=== PATIENT | male | born 1960 | race Caucasian/White ===

== ENCOUNTER 2017-08-08 11:30 | Emergency (ER) | payer BC ==
[2017-08-08] MEDS ORDERED: Aspirin Low Dose CHEW TAB* 81 MG PO ONE (12:02)
[2017-08-08 12:25] LABS: Hematocrit 40 % (42-52); Hemoglobin 14.2 g/dl (14.0-18.0); Mean Corpuscular HGB Conc 36 g/dl (31-36); Mean Corpuscular Hemoglobin 29 pg (27-31); Mean Corpuscular Volume 83 fL (80-94); Mean Platelet Volume 8 um3 (7.4-10.4); Red Blood Count 4.82 10^6/ul (4.0-5.4); Red Cell Distribution Width 14 % (10.5-15); White Blood Count 6.6 10^3/ul (3.5-10.8)
[2017-08-08 12:39] LABS: Albumin 4.5 g/dL (3.2-5.2); BUN/Creatinine Ratio 19.1 (8-20); Calcium 9.3 mg/dL (8.6-10.3); EGFR African American 154.6 (>60); EGFR Non-African American 120.2 (>60); Globulin 2.7 g/dL (2-4); Potassium 4.1 mmol/L (3.5-5.0); Total Bilirubin 0.6 mg/dL (0.2-1.0); Total Protein 7.2 g/dL (6.4-8.9)
--- NOTE | 2017-08-08 13:28 | RAD ---
INDICATION: 5 days of mid chest pain COMPARISON: Most recent comparison chest x-ray October 02, 2015 TECHNIQUE: Single AP portable view of the chest was obtained. FINDINGS: Image quality is compromised due to the relative inferiority of a portable chest x-ray. The heart and mediastinum exhibit normal size and contour. The lungs are grossly clear. There is no evidence of a large pleural effusion. Visualized bones are normal for the patient's age. IMPRESSION: No radiographic evidence for acute cardiopulmonary abnormality on this portable chest x-ray.
[2017-08-08] MEDS ORDERED: Ketorolac INJ* 30 MG/ML 1 ML VIAL IV ONE (14:11)
[2017-08-08 14:41] VITALS: BP 117/87
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
== END 2017-08-08 14:42 | disposition home or self-care (01) ==
LOC: ED 11:30
DX: R07.89 Other chest pain (principal); R05 Cough; R11.2 Nausea with vomiting, unspecified; F17.210 Nicotine dependence, cigarettes, uncomplicated
CPT/HCPCS: 36415; 71010; 80053; 82550; 82553; 83605; 83735; 83874; 83880; 84484; 85025; 85610; 85730; 93005; 96374; 99282; J1885

== ENCOUNTER 2018-08-19 15:57 | Emergency (ER) | payer BC ==
[2018-08-19 18:28] LABS: ABS Basophils 0.1 10^3/ul (0-0.2); ABS Eosinophils 0.1 10^3/ul (0-0.6); ABS Lymphocytes 1.7 10^3/ul (1.0-4.8); ABS Monocytes 0.8 10^3/ul (0-0.8); ABS Neutrophils 5.7 10^3/ul (1.5-7.7); ABS Nucleated RBC 0 10^3/ul; Eosinophil % 1.2 % (0-6); Hematocrit 39 % (42-52); Lymphocyte % 20.2 % (25-47); Mean Corpuscular HGB Conc 36 g/dl (31-36); Mean Corpuscular Hemoglobin 30 pg (27-31); Mean Corpuscular Volume 83 fL (80-94); Nucleated Red Blood Cells % 0.1; Platelet Count 228 10^3/ul (150-450); Red Blood Count 4.72 10^6/ul (4.00-5.40); Red Cell Distribution Width 14 % (10.5-15); White Blood Count 8.4 10^3/ul (3.5-10.8)
[2018-08-19 19:39] VITALS: BP 127/69
== END 2018-08-19 19:39 | disposition left against medical advice (07) ==
LOC: ED 15:57
DX: R10.9 Unspecified abdominal pain (principal); Z53.21 Procedure and treatment not carried out due to patient leaving prior to being seen by health care provider
CPT/HCPCS: 36415; 80053; 83605; 83690; 85025; 86140

== ENCOUNTER 2018-08-19 20:02 | Emergency (ER) | payer BC ==
--- NOTE | 2018-08-19 20:32 | UC ---
Abdominal Pain Male HPI - HPI Summary HPI Summary: A 57 y/o male presents to [facility] c/o severe abdominal pain reaching 10/10 in severity. According to the patient, he has been experiencing constant abdominal pain for the past 3 days, however, today it has become worse. The patient noted that he was at the [facility] ED prior to coming to [facility] UC approximately around 1500. He further noted that blood work was done at the [facility] ED but he did not get results. . He stated that initially the pain was tolerable, however, today it is causing pain with walking. The patient also has back pain, but he stated that the back pain is chronic, with nothing new concerning. He denies any nausea , vomiting or hematuria.No sense of urinary retention. Pt has been passing flatus, no BM x 5 days, Pt takes senokot. Patient has not had a BM for the past week, but he does not feel constipated or have the need to use the restroom. He put icy/hot patches on his abdomen, but nothing has helped. Patient has recently gained 40 lbs because he quit smoking in January. Patient takes medications which include 60 of Morphine 3x per day (took 2 today so far) . PCP is Randa Jcakman. No allergies to medications. Pt medications reviewed this visit. - History of Current Complaint Chief Complaint: UCAbdominalPain Stated Complaint: ABDOMINAL PAIN Time Seen by Provider: 08/19/18 20:17 Hx Obtained From: Patient Onset/Duration: Sudden Onset, Lasting Days, Still Present Timing: Constant Severity Initially: Severe Severity Currently: Severe Pain Intensity: 10 Pain Scale Used: 0-10 Numeric Location: Diffuse Radiates: No Aggravating Factor(s): Nothing Alleviating Factor(s): Nothing Associated Signs And Symptoms: Positive: Negative - Allergies/Home Medications Allergies/Adverse Reactions: Allergies Allergy/AdvReac Type Severity Reaction Status Date / Time Penicillins Allergy Difficulty Verified 08/19/18 20:11 Breathing phenytoin [From Dilantin] Allergy Difficulty Verified 08/19/18 20:11 Breathing PMH/Surg Hx/FS Hx/Imm Hx Previously Healthy: Yes Respiratory History: Asthma - Surgical History Surgical History: Yes Surgery Procedure, Year, and Place: LSP SURGERY X3 MOST RECENT 2001, HERNIA,. LEFT SHOULDER REPAIR - Family History Known Family History: Positive: Cardiac Disease, Other - CVA - Social History Lives: With Family Alcohol Use: None Substance Use Type: Prescribed Substance Use Comment - Amount & Last Used: oxy Smoking Status (MU): Former Smoker Type: Cigarettes Amount Used/How Often: 1 ppd Length of Time of Smoking/Using Tobacco: 47 years Household Exposure Type: Cigarettes Review of Systems Gastrointestinal: Abdominal Pain - LLQ Genitourinary: Negative Is Patient Immunocompromised?: No All Other Systems Reviewed And Are Negative: Yes Physical Exam - Summary Physical Exam Summary: Vital Signs Reviewed: Yes A+Ox3, no distress Eyes: Conjunctiva Clear, JAD. EOM intact and full ENT: Hearing grossly normal TM x 2 clear, mmoist, uvula midline, no exudate, no erythema Neck: Positive: Supple Respiratory: Positive: No respiratory distress, No accessory muscle use + CTA throughout no w/r Cardiovascular: RRR nl s1, s2 no m/r CBT <2 sec abd soft +/decreased BS + TTP LLQ/suprapubic area discomfort with direct palp. Pt supporting left side abd. No CVA no guarding, no rebound. Musculoskeletal Exam: CALL x 4 without difficulty Strength Intact, ROM Intact pt able to climb on and off stretcher without assistance Neurological: Positive: Alert, + sensation throughout Psychological: Positive: Normal Response To Family Skin: Positive: no rash, no ecchymosis Triage Information Reviewed: Yes Vital Signs: Initial Vital Signs Temp 99.0 F 08/19/18 20:08 Pulse 95 08/19/18 20:08 Resp 18 08/19/18 20:08 BP 124/80 08/19/18 20:08 Pulse Ox 100 08/19/18 20:08 Vital Signs Reviewed: Yes Diagnostics - Radiology No standard instances Xray Interpretation: Positive (See Comments) - Cloud Infrastructure Architect: ([id number]) Yarn Man: (JAMES) Report Date: 08/19/2018 20:44:00 Report Status: Final Begin of Report Content = EXAM: CT Abdomen and Pelvis Without Intravenous Contrast CLINICAL HISTORY: 57 years old, male; Pain; Abdominal pain; Other: Left lower pelvic pain; Prior surgery; Surgery date: 6+ months; Surgery type: Cholecystectomy; Patient HX: Lower pelvic pain and llq pain x 3 days, denies any other symptoms; Additional info: Abd pain, llq pain TECHNIQUE: Axial computed tomography images of the abdomen and pelvis without intravenous contrast. All CT scans at this facility use at least one of these dose optimization techniques: automated exposure control; mA and/or kV adjustment per patient size (includes targeted exams where dose is matched to clinical indication); or iterative reconstruction. Coronal and sagittal reformatted images were created and reviewed. COMPARISON: A /P W CT ABD/PEL W 12/16/2015 7:37 PM FINDINGS: Lung bases: Unremarkable. No mass. No consolidation. ABDOMEN: Liver: Unremarkable. Gallbladder and bile ducts : Unremarkable. No calcified stones. No ductal dilation. Pancreas: Unremarkable. No ductal dilation. Spleen: Unremarkable. No splenomegaly. Adrenals: Unremarkable. No mass. Kidneys and ureters: 14 mm simple left renal cyst. No followup necessary. No obstructing stones. No hydronephrosis. Stomach and bowel: Unremarkable. No obstruction. No mucosal thickening. PELVIS: Appendix : No findings to suggest acute appendicitis. Bladder: There is moderate wall thickening of the anterior wall of the urinary bladder with adjacent infiltrative changes in the fat. This could be cystitis or tumor. No stones. Reproductive: Unremarkable as visualized. ABDOMEN and PELVIS: Intraperitoneal space: Unremarkable. No free air. No significant fluid collection. Bones/joints : Posterior fusion L4-L5. Moderate skeletal degenerative change. No acute fracture. No dislocation. Soft tissues: Unremarkable. Vasculature: Limited atherosclerosis. No abdominal aortic aneurysm. Lymph nodes: Unremarkable. No enlarged lymph nodes. IMPRESSION: There is moderate wall thickening of the anterior wall of the urinary bladder with adjacent infiltrative changes in the fat. This could be cystitis or tumor Radiology Interpretation Completed By: Radiologist Re-Evaluation - Re-Evaluation First Eval Comment: repeat temp wnl. reviewed labs, urine and CT with pt. spoke with Dr. Campbell Jackman. potential for diverticulitis although normal wbc, no shift and normal lactic. will start cipro/flagyl tonight. will give dse for morning. Dr. Jackman office will call tomorrow for an appointment. Pt to take Morphine. APAP okay. return to ED if pain uncontrolled, vomiting, fever. Pt and comfortable and in agreement with plan Abd Pain Male Course/Dx - Course Course Of Treatment: Patient presents to urgent care with progressive abdominal pain over the last 2-3 days. Patient states pain is mostly in his left lower quadrant. Patient without any other complaints. No fevers no chills no nausea no vomiting patient's passing flatus. No chest pain no shortness of breath. Patient's chronic back pain which has not changed. Patient states he takes his baseline morphine which is not helping his belly pain. Patient has not had a bowel movement in 5 days. Patient states he does not feel constipated this is not abnormal for him. Patient went to the emergency department where he was in the waiting room for several hours. Patient came here for further evaluation. Patient did have lab work done in the emergency department. Review of his lab work was a CBC chemistry and CRP. Patient's CBC and chemistry were not concerning. Patient was noted to have an elevated CRP. In the past patient has had an elevated CRP but it was significantly elevated today. On exam, patient with tenderness in his left lower quadrant. Patient vital signs reviewed and stable. Will check a urine as well as a noncontrast CT. Pending these results will either A) recommend patient to the emergency Department B), treatment of any condition is identified as possible at urgent care C) discuss patient with PCP. Patient and his are comfortable and in agreement with plan. - Differential Dx/Clinical Impression Provider Diagnoses: abdominal pain Discharge - Sign-Out/Discharge Documenting (check all that apply): Patient Departure All imaging exams completed and their final reports reviewed: Yes - Discharge Plan Condition: Stable Disposition: HOME Prescriptions: Ciprofloxacin HCl [Cipro] 500 mg PO BID #18 tablet metroNIDAZOLE [Flagyl 500 MG TAB] 500 mg PO TID #28 tab Patient Education Materials: Abdominal Pain (ED) Referrals: Randa Jackman MD [Primary Care Provider] - (tomorrow - Dr. Jackman's office will contact you to schedule an appointment tomorrow ) Additional Instructions: As discussed, the CAT scan showed some inflammation in the area of your bladder. This could be related to your bladder or could be related to infection in your large intesting (colon) Your urine is being sent for additional testing. You have been started on antibiotics which will treat both of these conditions. It is recommended you take both antibiotics (Cipro 500mg and Flagyl 500mg) in the morning. Take your morphine 3 times a day as previously prescribed. It is okay to take Tylenol in addition to morphine. You may take 2 tablets of Tylenol every 6-8 hours. It is recommended you sleep with a pillow underneath her knees as bending your knees will help relieve some of the discomfort of her abdomen. It is recommended that you use a heating pad to help with her discomfort. Do not put the pad directly on your skin to avoid burn. Dr. Jackman is aware the your evaluated tonight and will see you tomorrow. Her office will contact you in the morning with an appointment. If, overnight, your pain becomes uncontrolled, you develop a fever, you develop vomiting, or you have any other concerns, it is recommended to go directly to emergency department for further evaluation. Continue to take your Senokot daily to help with regular bowel movements. Description since has been sent to your pharmacy for continuation. Is recommended you wait to fill his prescriptions until you're evaluated by Dr. Jackman she may change her medications. As discussed at urgent care today, your bladder was noted to be thick on CT scan. If you symptoms persist, Dr. Jackman may refer you to a urologist (bladder specialist) - Billing Disposition and Condition Condition: STABLE Disposition: Home - Attestation Statements Document Initiated by Octaviano: Yes Documenting Scribe: Simeon Jordan Provider For Whom Sherieibe is Documenting (Include Credential): Anastasiya Gordon MD Scribe Attestation: I, Simeon Jordan, scribed for Anastasiya Gordon MD on 08/19/18 at 2244. Scribe Documentation Reviewed: Yes Provider Attestation: The documentation as recorded by the Simeon sun accurately reflects the service I personally performed and the decisions made by me, Aanstasiya Gordon MD
--- NOTE | 2018-08-19 22:00 | RAD ---
EXAM: CT Abdomen and Pelvis Without Intravenous Contrast CLINICAL HISTORY: 57 years old, male; Pain; Abdominal pain; Other: Left lower pelvic pain; Prior surgery; Surgery date: 6+ months; Surgery type: Cholecystectomy; Patient HX: Lower pelvic pain and llq pain x 3 days, denies any other symptoms; Additional info: Abd pain, llq pain TECHNIQUE: Axial computed tomography images of the abdomen and pelvis without intravenous contrast. All CT scans at this facility use at least one of these dose optimization techniques: automated exposure control; mA and/or kV adjustment per patient size (includes targeted exams where dose is matched to clinical indication); or iterative reconstruction. Coronal and sagittal reformatted images were created and reviewed. COMPARISON: A/P W CT ABD/PEL W 12/16/2015 7:37 PM FINDINGS: Lung bases: Unremarkable. No mass. No consolidation. ABDOMEN: Liver: Unremarkable. Gallbladder and bile ducts: Unremarkable. No calcified stones. No ductal dilation. Pancreas: Unremarkable. No ductal dilation. Spleen: Unremarkable. No splenomegaly. Adrenals: Unremarkable. No mass. Kidneys and ureters: 14 mm simple left renal cyst. No followup necessary. No obstructing stones. No hydronephrosis. Stomach and bowel: Unremarkable. No obstruction. No mucosal thickening. PELVIS: Appendix: No findings to suggest acute appendicitis. Bladder: There is moderate wall thickening of the anterior wall of the urinary bladder with adjacent infiltrative changes in the fat. This could be cystitis or tumor. No stones. Reproductive: Unremarkable as visualized. ABDOMEN and PELVIS: Intraperitoneal space: Unremarkable. No free air. No significant fluid collection. Bones/joints: Posterior fusion L4-L5. Moderate skeletal degenerative change. No acute fracture. No dislocation. Soft tissues: Unremarkable. Vasculature: Limited atherosclerosis. No abdominal aortic aneurysm. Lymph nodes: Unremarkable. No enlarged lymph nodes. IMPRESSION: There is moderate wall thickening of the anterior wall of the urinary bladder with adjacent infiltrative changes in the fat. This could be cystitis or tumor.
[2018-08-19] MEDS ORDERED: Ciprofloxacin TAB* 500 MG PO ONE (22:33)
[2018-08-19] MEDS ORDERED: metroNIDAZOLE TAB* 250 MG PO ONE (22:34)
[2018-08-19 22:37] VITALS: BP 121/68
== END 2018-08-19 22:47 | disposition home or self-care (01) ==
LOC: UCEAST 20:02
DX: R10.32 Left lower quadrant pain (principal); Z88.0 Allergy status to penicillin; Z88.8 Allergy status to other drugs, medicaments and biological substances; Z87.891 Personal history of nicotine dependence
CPT/HCPCS: 74176; 81003; 87086; 99213; A9270-GY; G0463

== ENCOUNTER 2024-10-09 19:17 | Inpatient (IN) ==
[2024-10-09 19:44] LABS: Urine Appearance Turbid; Urine Bilirubin Negative (Negative); Urine Blood 2+ (Negative); Urine Color Yellow; Urine Glucose Negative (Negative); Urine Ketones Negative (Negative); Urine Nitrite Negative (Negative); Urine Protein 1+ (>=30 mg/dL) (Negative); Urine Specific Gravity 1.014 (1.002-1.030); Urine Urobilinogen Negative (Negative)
[2024-10-09 19:45] LABS: Hematocrit 42.4 % (38-53); Hemoglobin 14.2 g/dL (13.2-16.3); Mean Corpuscular Hemoglobin 29.5 pg (27-33); Mean Corpuscular Hgb Conc 33.5 g/dL (31-36); Mean Corpuscular Volume 87.9 fL (80-97); Mean Platelet Volume 8.2 fL (7.5-11.2); Platelet Count 284 10^3/uL (150-450); Red Blood Count 4.82 10^6/uL (4.06-5.63); Red Cell Distribution Width 15.2 % (12-17); White Blood Count 20.8 10^3/uL (3.6-10.2)
[2024-10-09 19:49] LABS: INR 1.09 (0.85-1.14)
[2024-10-09 20:00] LABS: Urine Benzodiazepine Screen None Detected (None Detect); Urine Cannabinoids Screen None Detected (None Detect); Urine Opiates Screen Presumptive Positive (None Detect)
[2024-10-09 20:05] LABS: High Sens Troponin Baseline 283 pg/mL (<20)
[2024-10-09] MEDS: Cefepime 2 GM in Dextrose 2 GM/50 ML BAG IV ONE (20:07)
[2024-10-09] MEDS: Lactated Ringers SEPSIS* BAG 2,260 ML IV ONE (20:08)
[2024-10-09 20:19] LABS: ABS Monocytes 1.7 10^3/uL (0.0-1.1); ABS Neutrophils 18.2 10^3/uL (1.5-7.6); ABS Nucleated RBC 0.01 10^3/ul; Lymphocyte % 4.6 %
[2024-10-09 20:20] LABS: Urine Bacteria Absent /HPF (Absent); Urine Red Blood Cell Trace(0-2/hpf) /HPF (0-Trace); Urine White Blood Cell Trace(0-5/hpf) /HPF (0-Trace)
[2024-10-09] MEDS: Lactated Ringers 1000 ml BAG 1,000 ML IV ONE (20:30)
[2024-10-09 20:33] LABS: ALT 47 U/L (7-52); Acetaminophen < 15 mcg/mL; Albumin 4.6 g/dL (3.2-5.2); Alcohol, S < 13 mg/dL (<13); Alkaline Phosphatase 65 U/L (35-149); Anion Gap 13 mmol/L (2-16); Blood Urea Nitrogen 23 mg/dL (6-24); CO2 Carbon Dioxide 28 mmol/L (22-32); Calcium 9.1 mg/dL (8.6-10.3); Chloride 98 mmol/L (101-111); Creatinine, Serum 2.49 mg/dL (0.67-1.17); Globulin 2.3 g/dL (2-4); Glucose 96 mg/dL (70-100); Magnesium 2.2 mg/dL (1.9-2.7); Salicylate < 2.50 mg/dL (<30); Sodium 139 mmol/L (135-145); Total Bilirubin 0.5 mg/dL (0.2-1.0); Total Protein 6.9 g/dL (6.4-8.9); eGFR CKD-EPI 27.9 (>60)
[2024-10-09 20:44] LABS: Creatine Kinase 2877 U/L (10-223); TSH Ultra Thyroid Stim Horm 0.92 mcIU/mL (0.34-5.60)
[2024-10-09 21:06] LABS: Potassium Redraw 4.6 mmol/L (3.5-5.0)
[2024-10-09 21:07] LABS: Venous Bicarbonate HCO3 21.5 mmol/L (24-28)
[2024-10-09 21:12] LABS: High Sensitivity Troponin 1 Hr 349 pg/mL (<20)
[2024-10-09] MEDS: Vancomycin 2,000 MG in NS 0.9% 250 ml 250 ML IVPB ONE (22:11)
[2024-10-10] MEDS: Acetaminophen IV 1 GM/100ML 1,000 MG/100 ML BAG IV ONE (00:34)
[2024-10-10 01:53] LABS: Venous Bicarbonate HCO3 23.2 mmol/L (24-28)
[2024-10-10] MEDS ORDERED: Sulfur Hexaflouride MICROSPHR 25 MG VIAL IV PRN (02:15)
[2024-10-10] MEDS: Azithromycin 500 mg/250 ml NS 500 MG/250 ML BAG IVPB SCH (02:48)
[2024-10-10] MEDS ORDERED: Zosyn per Pharmacy NOTE FOLLOW UP SCH (03:00)
[2024-10-10] MEDS: Lactated Ringers 1000 ml BAG 1,000 ML IV SCH (03:06)
[2024-10-10 03:31] LABS: High Sensitivity Troponin 3 Hr 1337 pg/mL (<20)
[2024-10-10] MEDS ORDERED: Albuterol HFA INHALER 8 gm MDI INH PRN (03:46)
[2024-10-10 04:04] LABS: PCO2 Arterial 64 mmHg (35-45); PO2 Arterial 160 mmHg (80-100)
[2024-10-10] MEDS ORDERED: Naloxone Nasal Spray 4 MG/0.1 ML NASAL.SPR INTRANASAL PRN (04:11)
[2024-10-10] MEDS: Naloxone 0.4 mg VIAL 0.4 mg/ml 1 ml VIAL IV PUSH ONE ×2 (04:30→06:51)
[2024-10-10 05:57] LABS: Hematocrit 36.8 % (38-53); Hemoglobin 12.6 g/dL (13.2-16.3); Mean Corpuscular Hemoglobin 29.5 pg (27-33); Mean Corpuscular Hgb Conc 34.1 g/dL (31-36); Mean Corpuscular Volume 86.3 fL (80-97); Platelet Count 186 10^3/uL (150-450); Red Blood Count 4.26 10^6/uL (4.06-5.63); Red Cell Distribution Width 15.1 % (12-17); White Blood Count 20.3 10^3/uL (3.6-10.2)
[2024-10-10 06:13] LABS: Creatinine, Serum 1.38 mg/dL (0.67-1.17); eGFR CKD-EPI 56.7 (>60)
[2024-10-10 06:15] LABS: Albumin 3.8 g/dL (3.2-5.2); Albumin/Globulin Ratio 1.9 (1-3); Creatinine, Serum 1.4 mg/dL (0.67-1.17); HDL Cholesterol 39.9 mg/dL; Magnesium 1.9 mg/dL (1.9-2.7); Potassium 4.8 mmol/L (3.5-5.0); Total Bilirubin 0.3 mg/dL (0.2-1.0); Total Protein 5.8 g/dL (6.4-8.9); eGFR CKD-EPI 55.8 (>60)
[2024-10-10 06:16] LABS: ABS Lymphocytes 0.9 10^3/uL (1.0-4.8); ABS Monocytes 1.4 10^3/uL (0.0-1.1); Lymphocyte % 4.4 %; RBC Morphology Normal (Normal)
[2024-10-10] MEDS: Metoprolol Tartrate 5 mg VIAL 5 ml VIAL (1 mg/ml) IV ONE (06:52)
[2024-10-10 07:54] LABS: Resp Rate 12
[2024-10-10 07:57] LABS: PCO2 Arterial 56 mmHg (35-45); PO2 Arterial 118 mmHg (80-100)
[2024-10-10] MEDS: Cefepime 2 GM in Dextrose 2 GM/50 ML BAG IV SCH (08:45)
[2024-10-10] MEDS: Propofol 10 mg/ml 100 ML BTL 1,000 MG/100 ML BTL ONE (08:51)
[2024-10-10] MEDS: Rocuronium 50 mg VIAL 10 mg/ml 5 ml VIAL (50 mg) ONE (08:51)
[2024-10-10] MEDS: Norepinephrine 4 MG/250mL D5W 4,000 MCG/250 ML BAG IV ONE (08:51)
[2024-10-10] MEDS: Succinylcholine 200 mg VIAL 20 mg/ml 10 ml VIAL (200 mg) ONE (08:52)
[2024-10-10] MEDS ORDERED: Heparin 5000 UNITS/ML 1 mL VIAL SUBCUT SCH ×2 (09:00→21:00)
[2024-10-10] MEDS: Heparin 5000 UNITS/ML 1 mL VIAL IV SCH (09:19)
[2024-10-10] MEDS: Heparin DRIP 25,000 UNITS BAG 25,000 UNITS/250 ML BAG IV SCH (09:19)
[2024-10-10] MEDS: PHENobarbital IV 65 MG/ML 1 ml VIAL IV SCH (10:53)
[2024-10-10] MEDS ORDERED: Albuterol/Ipratropium NEB.SOL (2.5/0.5 MG) 3 ML NEB.SOLN INH PRN (11:46)
[2024-10-10] MEDS: PHENobarbital 100 mg TAB PO SCH (12:12)
[2024-10-10 12:23] LABS: High Sensitivity Troponin 3 Hr 1499 pg/mL (<20)
[2024-10-10 13:40] LABS: High Sensitivity Troponin 1 Hr 1828 pg/mL (<20)
[2024-10-10] MEDS: Lidocaine PATCH 5% PATCH TRANSDERM SCH (13:47)
[2024-10-10 14:09] LABS: PCO2 Arterial 57 mmHg (35-45); PO2 Arterial 93 mmHg (80-100)
[2024-10-10 16:35] LABS: High Sensitivity Troponin 3 Hr 1497 pg/mL (<20)
[2024-10-10] MEDS: Enoxaparin 40 MG/0.4 ML SYR SUBCUT SCH (21:06)
[2024-10-11] MEDS: Acetaminophen IV 1 GM/100ML 1,000 MG/100 ML BAG IV PRN (00:51)
[2024-10-11 03:55] LABS: ABS Lymphocytes 0.9 10^3/uL (1.0-4.8); ABS Monocytes 0.8 10^3/uL (0.0-1.1); ABS Neutrophils 11.4 10^3/uL (1.5-7.6); Eosinophil % 0.4 %; Hematocrit 31.1 % (38-53); Hemoglobin 10.9 g/dL (13.2-16.3); Lymphocyte % 6.8 %; Mean Corpuscular Hemoglobin 29.9 pg (27-33); Mean Corpuscular Hgb Conc 35.2 g/dL (31-36); Mean Corpuscular Volume 84.9 fL (80-97); Mean Platelet Volume 8.3 fL (7.5-11.2); Platelet Count 165 10^3/uL (150-450); Red Blood Count 3.66 10^6/uL (4.06-5.63); White Blood Count 13.1 10^3/uL (3.6-10.2)
[2024-10-11 04:38] LABS: Creatinine, Serum 0.74 mg/dL (0.67-1.17); Potassium 3.6 mmol/L (3.5-5.0); eGFR CKD-EPI 100.6 (>60)
[2024-10-11 04:39] LABS: Albumin 3.3 g/dL (3.2-5.2); Albumin/Globulin Ratio 1.7 (1-3); Calcium 8.1 mg/dL (8.6-10.3); Globulin 1.9 g/dL (2-4); Magnesium 1.9 mg/dL (1.9-2.7); Total Bilirubin 0.4 mg/dL (0.2-1.0); Total Protein 5.2 g/dL (6.4-8.9)
[2024-10-11] MEDS: Ondansetron 4 mg VIAL 2 MG/ML 2 ml VIAL IV PRN (09:12)
[2024-10-11] MEDS: Mometasone/Formoter 200/5 MDI INH SCH (09:12)
[2024-10-11] MEDS: Ondansetron ODT 4 mg TAB 4 MG TAB PO PRN (16:45)
[2024-10-11] MEDS: Albuterol HFA INHALER 8 gm MDI INH SCH (16:50)
[2024-10-11] MEDS ORDERED: Albuterol HFA INHALER 8 gm MDI INH PRN (17:00)
[2024-10-11] MEDS: oxyCODONE/Acetamin 5/325 mg TAB PO PRN (20:10)
[2024-10-11] MEDS: PHENobarbital 100 mg TAB PO SCH (21:03)
[2024-10-12 06:20] LABS: ABS Eosinophils 0.1 10^3/uL (0.0-0.5); ABS Lymphocytes 1.6 10^3/uL (1.0-4.8); ABS Monocytes 0.6 10^3/uL (0.0-1.1); ABS Neutrophils 9.8 10^3/uL (1.5-7.6); ABS Nucleated RBC 0.01 10^3/ul; Eosinophil % 0.5 %; Hematocrit 30.7 % (38-53); Hemoglobin 10.8 g/dL (13.2-16.3); Lymphocyte % 13.1 %; Mean Corpuscular Hemoglobin 29.6 pg (27-33); Mean Corpuscular Hgb Conc 35.2 g/dL (31-36); Mean Corpuscular Volume 84.2 fL (80-97); Mean Platelet Volume 7.5 fL (7.5-11.2); Platelet Count 202 10^3/uL (150-450); Red Blood Count 3.65 10^6/uL (4.06-5.63); Red Cell Distribution Width 14.7 % (12-17)
[2024-10-12 07:11] LABS: Calcium 8.4 mg/dL (8.6-10.3); Creatinine, Serum 0.65 mg/dL (0.67-1.17); Potassium 3.3 mmol/L (3.5-5.0); eGFR CKD-EPI 104.6 (>60)
[2024-10-12] MEDS: Potassium Chlor 20 meq TAB.ER PO ONE ×2 (08:28→16:40)
[2024-10-12] MEDS: KCL 20 MEQ/100 ML IVPREMIX 20 MEQ/100 ML BAG IV SCH (08:53)
[2024-10-12 08:58] LABS: Magnesium 1.7 mg/dL (1.9-2.7); Phosphorus 1.5 mg/dL (2.5-5.0)
[2024-10-12] MEDS: Magnesium Sulfate 2 gm BAG 2 GM/50 ML BAG IVPB ONE (10:22)
[2024-10-12 11:21] LABS: Ferritin 215.7 ng/mL (24-336)
[2024-10-12] MEDS: Magnesium Sulfate IV 1GM/100ML 1 GM/100 ML BAG IV ONE (11:40)
[2024-10-12 11:45] LABS: High Sensitivity Troponin 1 Hr 467 pg/mL (<20)
[2024-10-12 14:56] LABS: Calcium 8.7 mg/dL (8.6-10.3); Creatinine, Serum 0.78 mg/dL (0.67-1.17); Potassium 3.6 mmol/L (3.5-5.0)
[2024-10-12] MEDS: cefTRIAXone 1 gm/50 mL D5W 1 GM/50 ML BAG IV SCH (21:01)
[2024-10-13 06:19] LABS: ABS Eosinophils 0.1 10^3/uL (0.0-0.5); ABS Lymphocytes 1.6 10^3/uL (1.0-4.8); ABS Monocytes 0.5 10^3/uL (0.0-1.1); ABS Neutrophils 5.2 10^3/uL (1.5-7.6); ABS Nucleated RBC 0.01 10^3/ul; Eosinophil % 1.9 %; Hematocrit 32.4 % (38-53); Hemoglobin 11.2 g/dL (13.2-16.3); Lymphocyte % 21.1 %; Mean Corpuscular Hemoglobin 29.2 pg (27-33); Mean Corpuscular Hgb Conc 34.7 g/dL (31-36); Mean Corpuscular Volume 84.3 fL (80-97); Mean Platelet Volume 7.6 fL (7.5-11.2); Nucleated Red Blood Cells % 0.1 %/100WBC (0.0-0.8); Platelet Count 215 10^3/uL (150-450); Red Blood Count 3.84 10^6/uL (4.06-5.63); Red Cell Distribution Width 14.3 % (12-17); White Blood Count 7.5 10^3/uL (3.6-10.2)
[2024-10-13 06:54] LABS: Calcium 8.3 mg/dL (8.6-10.3); Creatinine, Serum 0.68 mg/dL (0.67-1.17); Potassium 3.7 mmol/L (3.5-5.0); eGFR CKD-EPI 103.2 (>60)
[2024-10-13] MEDS: Potassium Chlor 20 meq TAB.ER PO ONE (07:51)
[2024-10-13 10:06] VITALS: BP 146/88
[2024-10-13] MEDS ORDERED: Regadenoson 0.4 MG/5 ML SYRINGE ONE (13:00)
[2024-10-13] MEDS ORDERED: Aminophylline 25 MG/ML VIAL ONE (13:00)
[2024-10-13] MEDS ORDERED: Albuterol HFA INHALER 8 gm MDI INH ONE (13:33)
[2024-10-13] MEDS ORDERED: cefTRIAXone 1 gm/50 mL D5W 1 GM/50 ML BAG IV ONE (21:00)
== END 2024-10-13 17:15 | disposition home or self-care (01) | DRG 720 ==
LOC: ED 19:17 → EDHOLD 19:17 → MEDTELE 19:17 → EDHOLD 10-10 02:08 → ICU 10-10 07:13 → MEDTELE 10-11 09:37
PROVIDERS: ADMIT Internal Medicine; ATTEND Hospitalist

== ENCOUNTER 2024-11-19 17:58 | Inpatient (IN) ==
[2024-11-19 18:23] LABS: PCO2 Arterial 63 mmHg (35-45); PO2 Arterial 89 mmHg (80-100)
[2024-11-19 18:30] LABS: ABS Lymphocytes 0.5 10^3/uL (1.0-4.8); ABS Monocytes 0.6 10^3/uL (0.0-1.1); ABS Nucleated RBC 0.01 10^3/ul; Hematocrit 38.8 % (38-53); Hemoglobin 13.2 g/dL (13.2-16.3); Lymphocyte % 4.9 %; Mean Corpuscular Hemoglobin 29.6 pg (27-33); Mean Corpuscular Hgb Conc 34.1 g/dL (31-36); Mean Corpuscular Volume 86.6 fL (80-97); Mean Platelet Volume 8.2 fL (7.5-11.2); Platelet Count 236 10^3/uL (150-450); Red Blood Count 4.48 10^6/uL (4.06-5.63); Red Cell Distribution Width 15.4 % (12-17); White Blood Count 11.1 10^3/uL (3.6-10.2)
[2024-11-19 18:54] LABS: High Sens Troponin Baseline 25 pg/mL (<20)
[2024-11-19 19:24] LABS: ALT 20 U/L (7-52); AST 23 U/L (13-39); Albumin 4.7 g/dL (3.5-5.7); Albumin/Globulin Ratio 1.7 (1-3); Alcohol, S < 13 mg/dL (<13); Alkaline Phosphatase 74 U/L (35-149); Anion Gap 6 mmol/L (2-16); Blood Urea Nitrogen 15 mg/dL (6-24); C Reactive Protein 49.69 mg/L (<8.01); CO2 Carbon Dioxide 32 mmol/L (22-32); Calcium 8.8 mg/dL (8.6-10.3); Chloride 98 mmol/L (101-111); Creatinine, Serum 0.77 mg/dL (0.67-1.17); Globulin 2.8 g/dL (2-4); Glucose 163 mg/dL (70-100); Potassium 4.5 mmol/L (3.5-5.0); Sodium 136 mmol/L (135-145); Total Bilirubin 0.5 mg/dL (0.2-1.0); Total Protein 7.5 g/dL (6.4-8.9); eGFR CKD-EPI 99.4 (>60)
[2024-11-19 20:03] LABS: High Sensitivity Troponin 1 Hr 32 pg/mL (<20)
[2024-11-19 20:51] LABS: Resp Rate 16
[2024-11-19 20:54] LABS: PCO2 Arterial 69 mmHg (35-45); PO2 Arterial 150 mmHg (80-100)
[2024-11-19] MEDS ORDERED: Naloxone Nasal Spray 4 MG/0.1 ML NASAL.SPR INTRANASAL PRN (21:06)
[2024-11-19] MEDS: Albuterol 2.5mg/3 ml (0.083%) NEB.SOLN INH ONE (21:09)
[2024-11-19] MEDS ORDERED: Albuterol HFA INHALER 8 gm MDI INH SCH (22:00)
[2024-11-19 22:03] LABS: High Sensitivity Troponin 3 Hr 36 pg/mL (<20)
[2024-11-19 22:39] LABS: PCO2 Arterial 66 mmHg (35-45); PO2 Arterial 112 mmHg (80-100)
[2024-11-19] MEDS: Enoxaparin 40 MG/0.4 ML SYR SUBCUT SCH (23:01)
[2024-11-19] MEDS: PHENOBARBITAL IVPB SCH (23:01)
[2024-11-19] MEDS: NS 0.9% IVPB SCH (23:01)
[2024-11-19] MEDS: Albuterol 2.5mg/3 ml (0.083%) NEB.SOLN INH SCH (23:56)
[2024-11-20 05:20] LABS: ABS Lymphocytes 0.8 10^3/uL (1.0-4.8); ABS Monocytes 0.5 10^3/uL (0.0-1.1); ABS Neutrophils 6.5 10^3/uL (1.5-7.6); Hematocrit 32.8 % (38-53); Hemoglobin 11.6 g/dL (13.2-16.3); Lymphocyte % 10.7 %; Mean Corpuscular Hemoglobin 30.3 pg (27-33); Mean Corpuscular Hgb Conc 35.5 g/dL (31-36); Mean Corpuscular Volume 85.3 fL (80-97); Mean Platelet Volume 7.9 fL (7.5-11.2); Platelet Count 208 10^3/uL (150-450); Red Blood Count 3.84 10^6/uL (4.06-5.63); Red Cell Distribution Width 15.2 % (12-17); White Blood Count 7.9 10^3/uL (3.6-10.2)
[2024-11-20 05:36] LABS: Calcium 8.4 mg/dL (8.6-10.3); Creatinine, Serum 0.66 mg/dL (0.67-1.17); Magnesium 2.1 mg/dL (1.9-2.7); Phosphorus 2.9 mg/dL (2.5-5.0); Potassium 4.4 mmol/L (3.5-5.0); eGFR CKD-EPI 104.1 (>60)
[2024-11-20] MEDS ORDERED: Albuterol 2.5mg/3 ml (0.083%) NEB.SOLN INH PRN (06:29)
[2024-11-20] MEDS: PHENobarbital LIQ 30 MG/7.5 ML UDC PO SCH (06:44)
[2024-11-20] MEDS ORDERED: Morphine ER 30 mg TAB ** extended release PO SCH ×2 (08:00→09:00)
[2024-11-20] MEDS ORDERED: Morphine ER 30 mg TAB ** extended release PO PRN (08:44)
[2024-11-20] MEDS: cefTRIAXone 1 gm/50 mL D5W 1 GM/50 ML BAG IV SCH (10:16)
[2024-11-20] MEDS: Mometasone/Formoter 200/5 MDI INH SCH (10:38)
[2024-11-20] MEDS ORDERED: Polyethylene Glycol 3350 17 GM PACKET PO PRN (10:51)
[2024-11-20] MEDS ORDERED: Senna TAB 8.6 mg TAB PO PRN (10:51)
[2024-11-20] MEDS: PHENobarbital 100 mg TAB PO SCH (11:23)
[2024-11-20] MEDS: Azithromycin 500 mg/250 ml NS 500 MG/250 ML BAG IVPB SCH (11:24)
[2024-11-20] MEDS: Morphine ER 30 mg TAB ** extended release PO PRN (20:49)
[2024-11-21 05:37] LABS: ABS Eosinophils 0.1 10^3/uL (0.0-0.5); ABS Lymphocytes 1.8 10^3/uL (1.0-4.8); ABS Monocytes 0.5 10^3/uL (0.0-1.1); ABS Neutrophils 3.3 10^3/uL (1.5-7.6); Eosinophil % 2.2 %; Hematocrit 32.9 % (38-53); Hemoglobin 11.7 g/dL (13.2-16.3); Lymphocyte % 30.6 %; Mean Corpuscular Hemoglobin 30.1 pg (27-33); Mean Corpuscular Hgb Conc 35.6 g/dL (31-36); Mean Corpuscular Volume 84.6 fL (80-97); Mean Platelet Volume 8.1 fL (7.5-11.2); Platelet Count 187 10^3/uL (150-450); Red Blood Count 3.88 10^6/uL (4.06-5.63); Red Cell Distribution Width 15.4 % (12-17); White Blood Count 5.7 10^3/uL (3.6-10.2)
[2024-11-21 06:18] LABS: Calcium 8.5 mg/dL (8.6-10.3); Creatinine, Serum 0.73 mg/dL (0.67-1.17); Magnesium 1.9 mg/dL (1.9-2.7); Potassium 3.7 mmol/L (3.5-5.0)
[2024-11-21 09:39] VITALS: BP 125/63
== END 2024-11-21 14:40 | disposition home or self-care (01) | DRG 133 ==
LOC: ED 17:58 → EDHOLD 20:49 → ICU 21:47 → MEDTELE 11-20 18:35
PROVIDERS: ADMIT Hospitalist; ATTEND Hospitalist